=== PATIENT | male | born 1955 | race Caucasian/White ===

== ENCOUNTER 2017-01-19 22:21 | Inpatient (IN) | payer BC, OTHER ==
[2017-01-19] MEDS ORDERED: SODIUM CHLORIDE 0.9% 500 ML IV STA (22:47)
[2017-01-19] MEDS ORDERED: RX INFO: IV CONTRAST WAS GIVEN 1 EACH MISC MISCELLANE PRN (22:47)
[2017-01-19] MEDS ORDERED: SODIUM CHLORIDE 0.9% 1,000 ML IV STA (22:47)
[2017-01-19 22:55] LABS: Glucose,Whole Blood 226 mg/dL (75-99)
[2017-01-19] MEDS ORDERED: diphenhydrAMINE 50 MG/ML 1 ML VIAL IVP STA (23:05)
[2017-01-19] MEDS ORDERED: FAMOTIDINE 20 MG/2 ML VIAL IV STA (23:05)
[2017-01-19] MEDS ORDERED: methylPREDNISolone SOD SUCCI 125 MG/2 ML VIAL IV STA (23:05)
[2017-01-19] MEDS ORDERED: tPA (Alteplase) PER PHARMACY 1 EACH MISC MISCELLANE PRN (23:08)
[2017-01-19 23:12] LABS: Basophils % (A) 1 %; CHCM 32.5; Eosinophils # (A) 0.2 k/uL (0-0.7); Eosinophils % (A) 3 %; HCT 51.6 % (39.0-53.0); HDW 2.67; HGB 17.1 gm/dL (13.0-17.5); Luc % (Auto) 3; Lymphocytes # (A) 0.9 k/uL (1.0-4.8); Lymphocytes % (A) 13 %; MCH 27.7 pg (25.0-35.0); MCHC 33.1 g/dL (31.0-37.0); MCV 83.5 fL (80.0-100.0); Mean Platelet Volume 9.4; Monocytes # (A) 0.4 k/uL (0-1.0); Monocytes % (A) 5 %; Neutrophils # (A) 5.6 k/uL (1.3-7.7); Neutrophils % (A) 76 %; RBC 6.18 m/uL (4.30-5.90); RDW 14.6 % (11.5-15.5); WBC 7.4 k/uL (3.8-10.6); WBC (Perox) 7.74
[2017-01-19] MEDS ORDERED: ALTEPLASE 81 MG in EMPTY BAG 1 BAG IV STA (23:18)
[2017-01-19] MEDS ORDERED: ALTEPLASE BOLUS 9 MG in EMPTY BAG 1 BAG IV STA (23:22)
[2017-01-19 23:24] LABS: Partial Thromboplastin Time 25.5 sec (22.0-30.0); Prothrombin Time 10.2 sec (9.0-12.0)
[2017-01-19 23:25] LABS: ALT 30 U/L (21-72); AST 19 U/L (17-59); Alkaline Phosphatase 100 U/L (38-126); Anion Gap 12 mmol/L; Blood Urea Nitrogen 24 mg/dL (9-20); Calcium 9.3 mg/dL (8.4-10.2); Carbon Dioxide 23 mmol/L (22-30); Chloride 106 mmol/L (98-107); Glucose 205 mg/dL (74-99); Non-African American GFR(MDRD) >60 (>60 ml/min/1.73 sqM); Potassium 4.3 mmol/L (3.5-5.1); Sodium 141 mmol/L (137-145); Total Bilirubin 0.6 mg/dL (0.2-1.3)
[2017-01-19 23:46] LABS: Creatine Kinase 56 U/L (55-170)
[2017-01-19 23:57] LABS: Creatine Kinase MB 1.7 ng/mL (0.0-2.4); Troponin I <0.012 ng/mL (0.000-0.034)
[2017-01-20] MEDS ORDERED: ASPIRIN 325 MG TAB PO STA (00:05)
--- NOTE | 2017-01-20 00:05 | ED ---
General Adult HPI - General Chief complaint: Neuro Symptoms/Deficit Stated complaint: Weakness Time Seen by Provider: 01/19/17 22:47 Source: patient, RN notes reviewed, old records reviewed Mode of arrival: wheelchair Limitations: no limitations - History of Present Illness Initial comments: This is a 61-year-old male to the ER for evaluation today. This patient presents for evaluation of stroke. Patient suffering extreme stroke symptoms including left-sided arm and leg paralysis. Family noted stroke symptoms as they came home tonight. The states symptoms started around 9 PM. Patient's symptoms are persistent now. Patient does have history of CVA or TIA with no lasting deficits. Denies drugs or alcohol. History of high blood pressure and high cholesterol with history of UT and stent. Patient also is on Xarelto as a blood thinner. - Related Data Home Medications Medication Instructions Recorded Confirmed Insulin Glargine,Hum.rec.anlog 22 unit SQ QAM 08/15/16 01/19/17 [Lantus Solostar] Lisinopril [Prinivil] 20 mg PO DAILY 08/15/16 01/19/17 Nebivolol HCl [Bystolic] 20 mg PO DAILY 08/15/16 01/19/17 amLODIPine [Norvasc] 10 mg PO DAILY 08/15/16 01/19/17 Previous Rx's Medication Instructions Recorded Rivaroxaban [Xarelto] 20 mg PO DAILY #30 tab 08/20/16 Allergies Allergy/AdvReac Type Severity Reaction Status Date / Time Iodinated Contrast Media - Allergy Unknown Verified 01/19/17 22:48 Oral and [Iodinated Contrast Media - IV Dye] codeine AdvReac Nausea & Verified 01/19/17 22:48 Vomiting Review of Systems ROS Statement: Those systems with pertinent positive or pertinent negative responses have been documented in the HPI. ROS Other: All systems not noted in ROS Statement are negative. Past Medical History Past Medical History: CVA/TIA, Diabetes Mellitus, Hypertension, Myocardial Infarction ([place]) History of Any Multi-Drug Resistant Organisms: None Reported Past Surgical History: Heart Catheterization With Stent, Tonsillectomy Additional Past Surgical History / Comment(s): eye sx Date of Last Stent Placement:: 2011 Past Psychological History: Depression Smoking Status: Current every day smoker Past Alcohol Use History: Rare Past Drug Use History: None Reported General Exam - General Exam Comments Initial Comments: NIH of 6 regarding left-sided upper and lower extremity strength to gravity Limitations: no limitations General appearance: alert, in no apparent distress Head exam: Present: atraumatic, normocephalic, normal inspection Eye exam: Present: normal appearance, PERRL, EOMI. Absent: scleral icterus, conjunctival injection, periorbital swelling ENT exam: Present: normal exam, mucous membranes moist Neck exam: Present: normal inspection. Absent: tenderness, meningismus, lymphadenopathy Respiratory exam: Present: normal lung sounds bilaterally. Absent: respiratory distress, wheezes, rales, rhonchi, stridor Cardiovascular Exam: Present: regular rate, normal rhythm, normal heart sounds. Absent: systolic murmur, diastolic murmur, rubs, gallop, clicks GI/Abdominal exam: Present: soft, normal bowel sounds. Absent: distended, tenderness, guarding, rebound, rigid Extremities exam: Present: normal inspection, full ROM, normal capillary refill. Absent: tenderness, pedal edema, joint swelling, calf tenderness Back exam: Present: normal inspection Neurological exam: Present: alert, oriented X3, CN II-XII intact Psychiatric exam: Present: normal affect, normal mood Skin exam: Present: warm, dry, intact, normal color. Absent: rash Course Vital Signs 01/19/17 22:33 Temperature 98.0 F Pulse Rate 80 Respiratory 18 Rate Blood Pressure 157/74 O2 Sat by Pulse 96 Oximetry - Reevaluation(s) Reevaluation #1: 01/20/17 00:03 Code stroke paged on patient presentation to emergency room 01/20/17 00:03 Spoke with neuro public relations counselor, made aware of clinical situation with close follow-up with CT CTA Reevaluation #2: 01/20/17 00:03 Discussion with family as well as patient regarding patient not following within recommendations for TPA secondary to use of Xarelto Reevaluation #3: 01/20/17 00:04 Also, recently patient's EKG which did show mild ST elevation did speak with cardiology who states no intervention or treatment at this time continue with stroke evaluation Medical Decision Making - Medical Decision Making 61 mallei positive CVA, positive CVA resulting in left-sided hemiparalysis, patient will be admitted for further neurological evaluation treatment, patient does have prior neurological admission for TIA and testing. Patient showing a call proven here in emergency room, patient was made contraindication per neuro intervention regarding use of Xarelto for tpa - Lab Data Result diagrams: 01/19/17 23:00 01/19/17 23:00 Lab Results 01/19/17 01/19/17 01/19/17 Range/Units 22:51 23:00 23:00 WBC 7.4 (3.8-10.6) k/uL RBC 6.18 H (4.30-5.90) m/uL Hgb 17.1 (13.0-17.5) gm/dL Hct 51.6 (39.0-53.0) % MCV 83.5 (80.0-100.0) fL MCH 27.7 (25.0-35.0) pg MCHC 33.1 (31.0-37.0) g/dL RDW 14.6 (11.5-15.5) % Plt Count 170 (150-450) k/uL Neutrophils % 76 % Lymphocytes % 13 % Monocytes % 5 % Eosinophils % 3 % Basophils % 1 % Neutrophils # 5.6 (1.3-7.7) k/uL Lymphocytes # 0.9 L (1.0-4.8) k/uL Monocytes # 0.4 (0-1.0) k/uL Eosinophils # 0.2 (0-0.7) k/uL Basophils # 0.0 (0-0.2) k/uL PT (9.0-12.0) sec INR (<1.1) APTT (22.0-30.0) sec Sodium (137-145) mmol/L Potassium (3.5-5.1) mmol/L Chloride (98-107) mmol/L Carbon Dioxide (22-30) mmol/L Anion Gap mmol/L BUN (9-20) mg/dL Creatinine (0.66-1.25) mg/dL Est GFR (MDRD) Af Amer (>60 ml/min/1.73 sqM) Est GFR (MDRD) Non-Af (>60 ml/min/1.73 sqM) Glucose (74-99) mg/dL POC Glucose (mg/dL) 226 H (75-99) mg/dL POC Glu [place] Open[employer] ID Natty Altamirano Calcium (8.4-10.2) mg/dL Total Bilirubin (0.2-1.3) mg/dL AST (17-59) U/L ALT (21-72) U/L Alkaline Phosphatase (38-126) U/L Total Creatine Kinase 56 (55-170) U/L CK-MB (CK-2) 1.7 (0.0-2.4) ng/mL CK-MB (CK-2) Rel Index 3.0 Troponin I <0.012 (0.000-0.034) ng/mL Total Protein (6.3-8.2) g/dL Albumin (3.5-5.0) g/dL 01/19/17 01/19/17 Range/Units 23:00 23:00 WBC (3.8-10.6) k/uL RBC (4.30-5.90) m/uL Hgb (13.0-17.5) gm/dL Hct (39.0-53.0) % MCV (80.0-100.0) fL MCH (25.0-35.0) pg MCHC (31.0-37.0) g/dL RDW (11.5-15.5) % Plt Count (150-450) k/uL Neutrophils % % Lymphocytes % % Monocytes % % Eosinophils % % Basophils % % Neutrophils # (1.3-7.7) k/uL Lymphocytes # (1.0-4.8) k/uL Monocytes # (0-1.0) k/uL Eosinophils # (0-0.7) k/uL Basophils # (0-0.2) k/uL PT 10.2 (9.0-12.0) sec INR 1.0 (<1.1) APTT 25.5 (22.0-30.0) sec Sodium 141 (137-145) mmol/L Potassium 4.3 (3.5-5.1) mmol/L Chloride 106 (98-107) mmol/L Carbon Dioxide 23 (22-30) mmol/L Anion Gap 12 mmol/L BUN 24 H (9-20) mg/dL Creatinine 1.00 (0.66-1.25) mg/dL Est GFR (MDRD) Af Amer >60 (>60 ml/min/1.73 sqM) Est GFR (MDRD) Non-Af >60 (>60 ml/min/1.73 sqM) Glucose 205 H (74-99) mg/dL POC Glucose (mg/dL) (75-99) mg/dL POC Glu [place] Opener ID Calcium 9.3 (8.4-10.2) mg/dL Total Bilirubin 0.6 (0.2-1.3) mg/dL AST 19 (17-59) U/L ALT 30 (21-72) U/L Alkaline Phosphatase 100 (38-126) U/L Total Creatine Kinase (55-170) U/L CK-MB (CK-2) (0.0-2.4) ng/mL CK-MB (CK-2) Rel Index Troponin I (0.000-0.034) ng/mL Total Protein 7.0 (6.3-8.2) g/dL Albumin 4.2 (3.5-5.0) g/dL - Radiology Data Radiology results: report reviewed (CT CTA shows watershed area, no acute embolus), image reviewed Critical Care Time Critical Care Time: Yes Total Critical Care Time: 31 Disposition Clinical Impression: Cerebrovascular accident Disposition: ADMITTED IP TO THIS [facility] Condition: Serious Referrals: Shaun Omalley MD [Primary Care Provider] - 1-2 days
--- NOTE | 2017-01-20 00:07 | XR ---
EXAM: XR Chest, 1 View. CLINICAL HISTORY: Reason: altered mental status TECHNIQUE: Frontal view of the chest. COMPARISON: Chest x-ray 08/16/2016. FINDINGS: Lungs: Bilateral perihilar airspace disease concerning for pulmonary edema versus multifocal infection. Low lung volumes. Vascular congestion. Pleural space: Unremarkable. No pneumothorax. Heart: Prominent cardiac silhouette. Mediastinum: Unremarkable. Bones/joints: Chronic fracture deformity of the left clavicle. IMPRESSION: 1. Bilateral perihilar airspace disease concerning for pulmonary edema versus multifocal infection. 2. Vascular congestion. 3. Prominent cardiac silhouette. 4. Low lung volumes.
[2017-01-20] MEDS ORDERED: PIPERACILLIN-TAZOBACTAM 3.375 GM in DEXTROSE/WATER 1 50ML.BAG IVPB STA (00:12)
[2017-01-20] MEDS ORDERED: LEVOFLOXACIN 750MG-D5W PMX 750 MG in DEXTROSE/WATER 1 150ML.BAG IVPB STA (00:12)
[2017-01-20] MEDS ORDERED: IPRATROPIUM-ALBUTEROL 3 ML NEB INHALATION STA (00:12)
[2017-01-20] MEDS ORDERED: IPRATROPIUM-ALBUTEROL 3 ML NEB INHALATION PRN (00:12)
[2017-01-20] MEDS ORDERED: POLYMYXIN B-TRIMETHOPRIM (10,000-1) OPHTH DROPS 10 ML BTL LEFT EYE STA (00:13)
--- NOTE | 2017-01-20 00:26 | CT ---
EXAM: CT Head Without Intravenous Contrast. CLINICAL HISTORY: Reason: Neuro Deficits TECHNIQUE: Axial computed tomography images of the head/brain without intravenous contrast. CTDI is 60 mGy and DLP is 1181 mGy-cm. This CT exam was performed using one or more of the following dose reduction techniques: automated exposure control, adjustment of the mA and/or kV according to patient size, and/or use of iterative reconstruction technique. COMPARISON: CT head 08/16/2016. FINDINGS: Brain: 1.5 cm age-indeterminate hypoattenuation in the posterior limb of left internal capsule. If there is high clinical suspicion for an acute process, recommend MRI for further evaluation. Chronic infarctions of bilateral cerebellar hemispheres, bilateral occipital lobes, bilateral thalami, and bilateral basal ganglia. Moderate-severe white matter hypoattenuation, which is nonspecific and may be related to chronic microvascular ischemic change. Mild cerebral volume loss. No acute hemorrhage. Ventricles: No hydrocephalus. Bones/joints: Unremarkable. No acute fracture. Soft tissues: Unremarkable. Vasculature: Intracranial vascular calcifications. Sinuses: Unremarkable as visualized. No acute sinusitis. Mastoid air cells: Unremarkable as visualized. No mastoid effusion. Orbits: Bilateral cataract extraction. IMPRESSION: 1. 1.5 cm age-indeterminate hypoattenuation in the posterior limb of left internal capsule. If there is high clinical suspicion for an acute process, recommend MRI for further evaluation. 2. Chronic infarctions of bilateral cerebellar hemispheres, bilateral occipital lobes, bilateral thalami, and bilateral basal ganglia. 3. Moderate-severe white matter hypoattenuation, which is nonspecific and may be related to chronic microvascular ischemic change. 4. Mild cerebral volume loss.
[2017-01-20] MEDS: LEVOFLOXACIN 750MG-D5W PMX 750 MG in DEXTROSE/WATER 1 150ML.BAG IVPB SCH ×2 (00:43→23:43)
--- NOTE | 2017-01-20 00:52 | CT ---
EXAM: CT Angiography Head With Intravenous Contrast. CT Angiography Neck With Intravenous Contrast. CLINICAL HISTORY: Reason: Neuro Deficits TECHNIQUE: Axial computed tomographic angiography images of the head and neck with intravenous contrast using CT angiography protocol. CTDI is 11 mGy and DLP is 520 mGy-cm. This CT exam was performed using one or more of the following dose reduction techniques: automated exposure control, adjustment of the mA and/or kV according to patient size, and/or use of iterative reconstruction technique. MIP reconstructed images were created and reviewed. COMPARISON: MRA head 08/18/2016. FINDINGS: HEAD: Right anterior cerebral artery: Unremarkable. No occlusion or significant stenosis. No aneurysm. Right middle cerebral artery: Multifocal mild to moderate stenosis of the right MCA, similar to prior exam. No aneurysm. Right posterior cerebral artery: Critical stenosis/occlusion of the right [employer], similar to prior exam. Left anterior cerebral artery: New mild stenosis of the left A1 segment. No aneurysm. Left middle cerebral artery: Multifocal mild to moderate stenosis of the left MCA, similar to prior exam. No aneurysm. Left posterior cerebral artery: Critical stenosis/occlusion of the left [employer], similar to prior exam. Basilar artery: Critical stenosis/occlusion of the basilar artery, progressed from prior exam. Sinuses: Mild mucosal thickening of the paranasal sinuses without air fluid level. Orbits: Bilateral cataract extraction. NECK: Right common carotid artery: Unremarkable. No significant stenosis. No dissection or occlusion. Right internal carotid artery: Less than 50% stenosis of the right ICA origin and moderate stenosis of the intracranial portion. Right external carotid artery: Unremarkable. No occlusion. Right vertebral artery: Moderate-severe multifocal stenosis throughout the right V1-V3 segments; complete occlusion of the right V4 segment with history of a prior intervention/surgical material, similar to prior exam. Left common carotid artery: Unremarkable. No significant stenosis. No dissection or occlusion. Left internal carotid artery: Less than 50% stenosis of the left ICA origin and moderate stenosis of the intracranial portion. Left external carotid artery: Unremarkable. No occlusion. Left vertebral artery: Critical stenosis/occlusion of the left V4 segment, progressed from prior exam. Nasopharynx: Trace fluid in the posterior nasopharynx. Oropharynx: Soft tissue prominence of the oropharynx/left vallecula may be related to mucosal thickening; recommend direct visualization by ENT to exclude underlying mass lesion. Thyroid: 2 cm left thyroid nodule. Recommend correlation with thyroid function tests/thyroid ultrasound. Lung apices: Moderate emphysematous changes at bilateral lung apices. HEAD and NECK: Bones/joints: Moderate degenerative changes of the spine. No acute fracture. No dislocation. Soft tissues: Unremarkable as visualized. No mass. CAROTID STENOSIS REFERENCE USING NASCET CRITERIA: % ICA stenosis = (1 - narrowest ICA diameter/diameter of distal cervical ICA) x 100. Mild - <50% stenosis. Moderate - 50-69% stenosis. Severe - 70-94% stenosis. Near occlusion - 95-99% stenosis. Occluded - 100% stenosis. IMPRESSION: 1. Multifocal critical stenosis/occlusion throughout the posterior circulation, progressed in the left vertebral and basilar arteries and completely detailed above. 2. Mild to moderate multifocal stenosis throughout the anterior circulation, detailed above. 3. Soft tissue prominence of the oropharynx/left vallecula may be related to mucosal thickening; recommend direct visualization by ENT to exclude underlying mass lesion. 4. 2 cm left thyroid nodule. Recommend correlation with thyroid function tests/thyroid ultrasound. 5. Moderate emphysematous changes at bilateral lung apices. [employer] 01/20/17 00:56 Verify Receipt Verified receipt with clerk Jolly in the ER for Dr Lebron @ [phone]
[2017-01-20] MEDS: SODIUM CHLORIDE 0.9% 1,000 ML IV STA ×2 (01:14→06:32)
[2017-01-20] MEDS: POLYMYXIN B-TRIMETHOPRIM (10,000-1) OPHTH DROPS 10 ML BTL LEFT EYE SCH ×5 (01:14→23:11)
[2017-01-20 03:39] VITALS: BMI 38.2
[2017-01-20] MEDS: PIPERACILLIN-TAZOBACTAM 3.375 GM in DEXTROSE/WATER 1 50ML.BAG IVPB SCH ×3 (06:31→17:22)
[2017-01-20] MEDS: SODIUM CHLORIDE 0.9% 1,000 ML IV SCH ×2 (06:32→09:48)
[2017-01-20 14:11] LABS: Cholesterol 283 mg/dL (<200); HDL Cholesterol 41 mg/dL (40-60); Triglycerides 436 mg/dL (<150)
--- NOTE | 2017-01-20 15:51 | P.CNPUL ---
History of Present Illness Consult date: 01/20/17 Reason for consult: cough, abnormal CXR/CT Chief complaint: Left sided weakness History of present illness: This is a 61-year-old male who presented to the emergency department for strokelike symptoms. The patient was complaining of left-sided arm and leg weakness. The patient has a history of CVA and TIA but no deficits. The patient states she is an active smoker he smokes one to 2 packs per day for the last 40 years. He has never been diagnosed with COPD or asthma. He states he has inhalers at home but does not use them and does not know which ones they are. He does have a nebulizer at home which he never uses. He states he does get short of breath with exertion. He has never had a pulmonary function test. He does state he coughs every day and the phlegm is different colors all the time. On CTA of the brain the patient was found to have critical stenosis/ occlusion. The posterior circulation in the left vertebral and basilar arteries. The patient also had an echocardiogram in July 2016 which showed an ejection fraction of 40-45%. Review of Systems All systems: negative Past Medical History Past Medical History: CVA/TIA, Diabetes Mellitus, Hypertension, Myocardial Infarction ([place]) Last Myocardial Infarction Date:: unknown History of Any Multi-Drug Resistant Organisms: None Reported Past Surgical History: Heart Catheterization With Stent, Tonsillectomy Additional Past Surgical History / Comment(s): eye sx Date of Last Stent Placement:: 2011 Past Psychological History: Depression Smoking Status: Current every day smoker Past Alcohol Use History: Rare Past Drug Use History: None Reported Medications and Allergies Home Medications Medication Instructions Recorded Confirmed Type Insulin Glargine,Hum.rec.anlog 22 unit SQ QAM 08/15/16 01/19/17 History [Lantus Solostar] Lisinopril [Prinivil] 20 mg PO DAILY 08/15/16 01/19/17 History Nebivolol HCl [Bystolic] 20 mg PO DAILY 08/15/16 01/19/17 History amLODIPine [Norvasc] 10 mg PO DAILY 08/15/16 01/19/17 History Allergies Allergy/AdvReac Type Severity Reaction Status Date / Time Iodinated Contrast Media - Allergy Unknown Verified 01/19/17 22:48 Oral and [Iodinated Contrast Media - IV Dye] codeine AdvReac Nausea & Verified 01/19/17 22:48 Vomiting Physical Exam Osteopathic Statement: *. No significant issues noted on an osteopathic structural exam other than those noted in the History and Physical/Consult. Vitals: Vital Signs Temp Pulse Pulse Resp BP BP Pulse Ox 01/20/17 07:45 97.1 F L 60 16 168/91 94 L 01/20/17 02:20 97.2 F L 63 18 156/83 93 L 01/20/17 02:05 70 18 161/90 96 01/20/17 00:50 66 18 157/87 96 01/20/17 00:39 101 H Intake and Output 01/20/17 01/20/17 01/20/17 06:59 14:59 22:59 Intake Total 120 Balance 120 Intake: Oral 120 Other: Voiding Method Bedside Commode Bedside Commode # Voids 0 # Bowel Movements 0 Weight 131.542 kg Gen.: Patient is alert and oriented 3, no acute distress Cardiovascular: Regular rate and rhythm, S1/S2 Lungs: Scattered bilateral crackles Abdomen: Soft nontender nondistended positive bowel sounds Extremities: No edema Neuro: Left facial droop with left upper extremity and lower extremity weakness Results - Laboratory Findings CBC and BMP: 01/19/17 23:00 01/19/17 23:00 PT/INR, D-dimer PT 10.2 sec (9.0-12.0) 01/19/17 23:00 INR 1.0 (<1.1) 01/19/17 23:00 Abnormal lab findings: Abnormal Labs 01/20/17 05:33 Triglycerides 436 H Cholesterol 283 H - Diagnostic Findings Chest x-ray: report reviewed, image reviewed Assessment and Plan Plan: Pulmonary vascular congestion on CXR Suspect underlying COPD Posterior circulation CVA Hx CHF, systolic, EF 40-45% Hx CVA/TIA Paroxysmal Afib Hx LV thrombus Diabetes mellitus type 2 Hypertension Dyslipidemia Obesity Active tobacco abuse Check AIC, TSH, BNP Lasix 40mg BID for now DC IVF Will repeat chest x-ray in the next 24-48 hours Monitor for fevers/WBC Levaquin, Zosyn O2 to maintain saturation greater than or equal to 88% Duo nebs and Pulmicort Nicotine transdermal Neurology and cardiology recommendations Blood pressure control Incentive spirometry and pulmonary hygiene Smoking cessation is highly recommended Prednisone taper Outpatient PFT and pulmonary follow-up Thank you for this consultation we'll continue to follow along
[2017-01-20] MEDS: ATORVASTATIN 40 MG TAB PO SCH (16:46)
[2017-01-20] MEDS: NICOTINE 14MG/24HR PATCH TRANSDERM SCH (16:47)
[2017-01-20] MEDS: LISINOPRIL 20 MG TAB PO SCH (16:47)
[2017-01-20 17:16] LABS: Glucose,Whole Blood 113 mg/dL (75-99)
--- NOTE | 2017-01-20 17:20 | US ---
EXAMINATION TYPE: US carotid duplex BILAT DATE OF EXAM: 01/20/2017 4:27 PM COMPARISON: 08/16/2016 CLINICAL HISTORY: cva. Stroke per patient. Left side paralysis. Suboptimal exam due to patient unable to stay still and falling asleep during exam. EXAM MEASUREMENTS: RIGHT: Peak Systolic Velocity (PSV) cm/sec ----- Right CCA: 57.5 ----- Right ICA: 165.4 ----- Right ECA: 118.5 ICA/CCA ratio: 2.9 RIGHT: End Diastole cm/sec ----- Right CCA: 10.4 ----- Right ICA: 29.4 ----- Right ECA: 4.7 LEFT: Peak Systolic Velocity (PSV) cm/sec ----- Left CCA: 91.4 ----- Left ICA: 73.2 ----- Left ECA: 91.9 ICA/CCA ratio: 0.8 LEFT: End Diastole cm/sec ----- Left CCA: 15.0 ----- Left ICA: 20.4 ----- Left ECA: 8.3 VERTEBRALS (direction of flow): Right Vertebral: Antegrade Left Vertebral: Antegrade Right side stenosis seen. Elevated velocity in right proximal ICA. Plaque seen in bilateral bulbs. Bilateral wall thickening. Incidental finding- left thyroid nodule = 2.5 x 2.0 x 2.2 cm IMPRESSION: There is antegrade flow in the vertebral arteries. The images and measurements suggest 5 0-70% stenosis in the right internal carotid artery and 30% stenosis in the left internal carotid art coty. Right internal carotid artery velocity is increased compared to last exam. There is a 2.5 x 2 cm predominantly solid nodule in the lower pole left thyroid lobe of uncertain sig nificance. Criteria for Assigning % of Stenosis / Diameter reduction (Estimation based on the indirect measurements of the internal carotid artery velocities (ICA PSV). 1. Normal (no stenosis)=ICA PSV < 125 cm/s: ratio < 2.0: ICA EDV<40 cm/s. 2. Less than 50% stenosis=ICA PSV < 125 cm/s: ratio < 2.0: ICA EDV<40 cm/s. 3. 50 to 69% stenosis=ICA PSV of 125 to 230 cm/s: ration 2.0 ? 4.0: ICA EDV 40-100 cm/s. 4. Greater than 70% stenosis to near occlusion= ICA PSV > 230 cm/s: ratio > 4.0: ICA EDV > 100 cm/s. 5. Near occlusion= ICA PSV velocities may be low or undetectable: variable ratio and ICA EDV. 6. Total occlusion=unable to detect flow.
[2017-01-20] MEDS: INSULIN GLARGINE 100 UNIT/ML 10 ML VIAL SQ SCH (17:22)
[2017-01-20] MEDS: BUDESONIDE 0.5 MG/2 ML NEBU INHALATION SCH (20:20)
[2017-01-20] MEDS: FUROSEMIDE 10 MG/ML 4 ML VIAL IV SCH (20:20)
[2017-01-20] MEDS: FAMOTIDINE 20 MG TAB PO SCH (20:20)
[2017-01-20] MEDS: IPRATROPIUM-ALBUTEROL 3 ML NEB INHALATION SCH (20:20)
--- NOTE | 2017-01-20 21:04 | P.CNNES ---
History of Present Illness Consult date: 01/20/17 Reason for Consult: Patient admitted with acute left sided weakness and probable stroke. History of Present Illness: This patient is a 61-year-old right-handed white male who was in his usual state of health until late yesterday evening. Patient apparently developed sudden onset of left-sided arm and leg weakness. His symptoms started at about 9 PM yesterday evening. His symptoms persisted and the family was very concerned and he was brought in to the emergency room at [facility] for further evaluation. He was seen in the emergency room by Dr. eLbron. Patient was sent for immediate computed tomography scan of the brain which revealed a hypoattenuation in the posterior limb of the internal capsule on the left. Bilateral chronic infarctions were seen in the cerebellar hemispheres as well as bilateral occipital lobes and bilateral thalamus and basal ganglia. Moderate to severe white matter hypoattenuation was noted. Patient was brought back to the emergency room. Patient was reassessed by Dr. Lebron his NIH stroke scale was noted to be 6.0. The neuro interventional group was contacted by the ER physician. And CT and CTA angiogram studies were reviewed by the neuro interventionalist. The patient was taking Xarelto for possible paroxysmal atrial fibrillation. Due to the use of the anticoagulant the patient was not deemed a candidate for TPA by the neuro interventionalist. Patient was recommended admission to the hospital for further stroke evaluation and treatment. Patient apparently had a recent evaluation in the hospital for TIA symptoms. He was found to have symptoms of possible paroxysmal atrial fibrillation. He was recommended to continue with Xarelto. Patient is not a very good historian but states that he has been taking his Xarelto as instructed. CTA angiogram revealed multifocal stenosis of the posterior circulation. Left vertebral and basilar arteries showed 6 moderate stenosis. Mention was also made of a 2 cm left thyroid nodule. Patient was subsequently admitted to the hospital for a complete stroke evaluation. He underwent a carotid Doppler ultrasound which revealed 50-70% stenosis of the right internal carotid artery. Left internal carotid artery measured 30% stenosis. during his last hospitalization in July 2016 echocardiogram revealed his ejection fraction to be 4045 percent. as noted he was prescribed Xarelto for further treatment. The patient states he is unable to move his left arm due to the stroke. He is able to move his left foot. Prior to his admission he was able to use the left side. He denies any major speech impairment but does have some left-sided facial drooping as well. The patient's stroke risk factors include previous stroke and TIA, hypertension, diabetes mellitus, and hyper lipidemia. His serum cholesterol on admission was noted to be 283. Patient was started on Lipitor 40 mg daily for treatment. Patient does mention he has short-term memory loss and difficulty with day-to-day functioning at home. He is now been admitted and neurology has been consulted for further evaluation and recommendations. Review of Systems Constitutional: Denies chills, Denies fever Eyes: denies blurred vision, denies pain Ears, nose, mouth and throat: Denies headache, Denies sore throat Cardiovascular: Denies chest pain, Denies shortness of breath Respiratory: Denies cough Gastrointestinal: Denies abdominal pain, Denies diarrhea, Denies nausea, Denies vomiting Musculoskeletal: Denies myalgias Integumentary: Denies pruritus, Denies rash Neurological: Reports change in mentation, Reports confusion, Reports paralysis , Denies numbness, Denies weakness Psychiatric: Denies anxiety, Denies depression Endocrine: Denies fatigue, Denies weight change Past Medical History Past Medical History: CVA/TIA, Diabetes Mellitus, Hypertension, Myocardial Infarction (CO) Last Myocardial Infarction Date:: unknown History of Any Multi-Drug Resistant Organisms: None Reported Past Surgical History: Heart Catheterization With Stent, Tonsillectomy Additional Past Surgical History / Comment(s): eye sx Date of Last Stent Placement:: 2011 Past Psychological History: Depression Smoking Status: Current every day smoker Past Alcohol Use History: Rare Past Drug Use History: None Reported Medications and Allergies Home Medications Medication Instructions Recorded Confirmed Type Insulin Glargine,Hum.rec.anlog 22 unit SQ QAM 08/15/16 01/19/17 History [Lantus Solostar] Lisinopril [Prinivil] 20 mg PO DAILY 08/15/16 01/19/17 History Nebivolol HCl [Bystolic] 20 mg PO DAILY 08/15/16 01/19/17 History amLODIPine [Norvasc] 10 mg PO DAILY 08/15/16 01/19/17 History Allergies Allergy/AdvReac Type Severity Reaction Status Date / Time Iodinated Contrast Media - Allergy Unknown Verified 01/19/17 22:48 Oral and [Iodinated Contrast Media - IV Dye] codeine AdvReac Nausea & Verified 01/19/17 22:48 Vomiting Physical Examination - Vital Signs Vital Signs: Vital Signs Temp Pulse Pulse Resp BP BP Pulse Ox 01/20/17 17:20 97.5 F L 64 18 186/84 95 01/20/17 11:20 61 18 192/95 92 L 01/20/17 07:45 97.1 F L 60 16 168/91 94 L 01/20/17 02:20 97.2 F L 63 18 156/83 93 L 01/20/17 02:05 70 18 161/90 96 01/20/17 00:50 66 18 157/87 96 01/20/17 00:39 101 H Intake and Output 01/20/17 01/20/17 01/20/17 06:59 14:59 22:59 Intake Total 120 1160 Output Total 450 Balance -330 1160 Intake: Intake, IV Titration 1100 Amount Sodium Chloride 0.9% 1, 1100 000 ml @ 100 mls/hr IV . Q10H [facility] Rx#:[id number] Oral 120 60 Output: Urine 450 Other: Voiding Method Bedside Commode Bedside Commode Bedside Commode # Voids 0 # Bowel Movements 0 Weight 131.542 kg - Constitutional General appearance: average body habitus, cooperative - EENT EENT: PERRL, mucous membranes moist - Respiratory Respiratory: lungs clear, normal breath sounds - Cardiovascular Cardiovascular: normal S1, normal S2 Extremities: no peripheral edema bilaterally - Gastrointestinal Gastrointestinal: normoactive bowel sounds - Integumentary Integumentary: normal - Neurologic Cranial nerve examination: PERRL, EOMI, VFF, V1/V2/V3 grossly intact, tongue midline, intact gag reflex, facial droop (There is a left upper motor neuron facial weakness pattern.), normal palatal elevation Speech examination: intact Sensorimotor examination: intact Motor examination - right side: 5/5: biceps, triceps, wrist flexion, wrist extension, construction mgr, hip flexors, knee extensors, dorsiflexion, toe extension (EHL) , plantarflexion Motor examination - left side: 1/5: biceps, triceps, wrist flexion, wrist extension, construction mgr, hip flexors, knee extensors, dorsiflexion, toe extension (EHL) , plantarflexion Detailed sensory examination: intact Reflex and gait examination: intact Reflexes: 1+: ankle, bicep, knee, tricep - Musculoskeletal Musculoskeletal: no pain - Psychiatric Psychiatric: mood/affect appropriate, cooperative Results - Laboratory Findings CBC and BMP: 01/19/17 23:00 01/19/17 23:00 Abnormal Lab Findings: Abnormal Labs 01/20/17 01/20/17 05:33 17:07 POC Glucose (mg/dL) 113 H Triglycerides 436 H Cholesterol 283 H Assessment and Plan (1) Acute right arterial ischemic stroke, MCA (middle cerebral artery) Status: Acute Code(s): I63.511 - CEREB INFRC D/T UNSP OCCLS OR STENOS OF RIGHT MID CEREB ART (2) Hyperlipidemia Status: Acute Code(s): E78.5 - HYPERLIPIDEMIA, UNSPECIFIED (3) Encephalopathy Status: Acute Code(s): G93.40 - ENCEPHALOPATHY, UNSPECIFIED (4) Paroxysmal atrial fibrillation Status: Acute Code(s): I48.0 - PAROXYSMAL ATRIAL FIBRILLATION Plan: This patient is a 61-year-old male who was brought into the emergency room at about midnight yesterday with symptoms of left-sided weakness. Patient states his symptoms began at 9 PM yesterday evening. He was evaluated in the emergency room by Dr. Lebron. His NIH stroke scale was 6.0. He was sent for CT of the brain and CT angiogram the results of which are noted above. The neural interventionalists was contacted and it was their decision not to give TPA as the patient is on Xarelto. They have reviewed the neuro imaging studies as well. Patient was admitted to the hospital for further evaluation. Neurology was consult did today for further assessment of recent stroke. His neurological examination at this time reveals him to have significant left- sided hemiparesis arm greater than leg. There is also left upper motor neuron facial weakness. This patient has suffered an acute right hemispheric stroke. We have recommended a complete stroke evaluation for the patient. We will obtain an MRI of the brain for further assessment of recent stroke findings. The patient is to continue on Xarelto for further anticoagulation. We would recommend a vascular surgery consultation to review his recent ultrasound report. We would also recommend cardiology consultation regarding his anticoagulation. This patient's overall prognosis at this time remains very guarded. He was started on Lipitor 40 mg daily for treatment of hyperlipidemia. His serum cholesterol is 283. Patient will need ongoing PT OT and speech therapy evaluation. He may be a candidate for inpatient rehab. His overall prognosis at this time remains very guarded. Time with Patient: Greater than 30
[2017-01-20 21:30] LABS: Glucose,Whole Blood 117 mg/dL (75-99)
[2017-01-21] MEDS: PIPERACILLIN-TAZOBACTAM 3.375 GM in DEXTROSE/WATER 1 50ML.BAG IVPB SCH ×3 (02:02→18:30)
[2017-01-21 06:25] LABS: Glucose,Whole Blood 128 mg/dL (75-99)
[2017-01-21] MEDS: POLYMYXIN B-TRIMETHOPRIM (10,000-1) OPHTH DROPS 10 ML BTL LEFT EYE SCH ×5 (06:48→23:39)
[2017-01-21 06:52] LABS: ALT 31 U/L (21-72); AST 37 U/L (17-59); Alkaline Phosphatase 93 U/L (38-126); Anion Gap 14 mmol/L; Blood Urea Nitrogen 17 mg/dL (9-20); Calcium 9.6 mg/dL (8.4-10.2); Carbon Dioxide 24 mmol/L (22-30); Chloride 102 mmol/L (98-107); Glucose 135 mg/dL (74-99); Non-African American GFR(MDRD) >60 (>60 ml/min/1.73 sqM); Potassium 4.2 mmol/L (3.5-5.1); Sodium 140 mmol/L (137-145); Total Bilirubin 0.8 mg/dL (0.2-1.3)
--- NOTE | 2017-01-21 07:34 | HP ---
DATE OF ADMISSION: 01/20/2017 CHIEF COMPLAINT: A 61-year-old white male presents with neuro symptoms and deficits of weakness and left-sided weakness admitted to the hospital with acute right middle cerebral stroke. He has had left-sided arm and leg paralysis. Symptoms started 9:00 p.m. last night. He is beyond TPA type time line when he came to the emergency room. He has a history of CVA or TIA in the past, which resolved. Denies drugs or alcohol. He had three Coney dogs he states before he came to the hospital. He has hypertension, hypercholesterolemia, history of myocardial infarction, stent. He is on Xarelto for blood thinner. Home medications: 1. Lantus 22 units subcu in the morning. 2. Prinivil 20 daily. 3. Bystolic 20 daily. 4. Amlodipine 10 daily. 5. Xarelto 20 mg daily. ALLERGIES: IODINE, CODEINE. Fourteen-point review of systems negative except for as mentioned in HPI. PAST MEDICAL HISTORY: CVA, TIA, myocardial infarction, left atrial thrombus, diabetes mellitus, hypertension. SURGERIES: Heart catheterization stent, tonsillectomy. He has history of depression, current every day smoker. PHYSICAL EXAM: He has a limited motion of his left arm and left leg maybe 5% strength and movement of his left leg 0% percent of his left arm. His speech is slurred and garbled. There is some mild right facial weakness. GENERAL APPEARANCE: Alert, in no acute distress. Ophthalmologic: Pupils equal, round and reactive to light and accommodation. Extraocular movements intact. NECK: Supple. No adenopathy. He has absent wheezes, rales, rhonchi, stridor. CARDIOVASCULAR: Regular rate and rhythm. No rubs, or gallops or clicks. GI: Normal bowel sounds. No guarding or rebound. EXTREMITIES: Normal on inspection. Full range of motion. No tenderness, pedal edema, joint swelling or calf tenderness. Back is normal inspection. NEUROLOGIC: Cranial nerves are intact. PSYCH: Fair mood and affect. Temperature 98. Blood pressure 150s/70's. O2 sat 96% on room air. Respiratory rate 18. EKG showed mild ST-T elevation. White count is 7.4, hemoglobin 17.1, sodium 141, potassium 4.3, BUN 24, creatinine 1.0, white count is 7.4, hemoglobin 17.1, glucose 226, first troponin is negative. Sodium, potassium normal. ASSESSMENT: 1. Acute right middle cerebral cerebrovascular accident. 2. Hypertension. 3. Diabetes mellitus. 4. Obesity. 5. Possible carotid stenosis. PLAN: Continue current neurologic and cardiac work-up. Carotid stenosis. Vascular consult. Please see further orders.
--- NOTE | 2017-01-21 07:47 | XR ---
EXAMINATION TYPE: XR chest 1V portable DATE OF EXAM: 01/21/2017 7:29 AM COMPARISON: 01/19/2017 HISTORY: Shortness of breath TECHNIQUE: Single frontal view of the chest is obtained. FINDINGS: Perihilar interstitium is improved. Heart is mildly improved. Biapical pleural thickening but no pneumothorax. Suggestion of possible chronic rib deformity on the right. No sizable pleural ef fusion. IMPRESSION: 1. Improving interstitial pattern. Correlate for resolving pneumonitis or venous congestion
[2017-01-21] MEDS ORDERED: NICOTINE 14MG/24HR PATCH TRANSDERM SCH (09:00)
[2017-01-21] MEDS ORDERED: INSULIN GLARGINE 100 UNIT/ML 10 ML VIAL SQ SCH (09:00)
[2017-01-21] MEDS ORDERED: LISINOPRIL 20 MG TAB PO SCH (09:00)
[2017-01-21] MEDS: BUDESONIDE 0.5 MG/2 ML NEBU INHALATION SCH ×2 (09:05→19:58)
[2017-01-21] MEDS: IPRATROPIUM-ALBUTEROL 3 ML NEB INHALATION SCH ×3 (09:06→19:57)
[2017-01-21] MEDS: NEBIVOLOL 5 MG TAB PO SCH (10:40)
[2017-01-21] MEDS: RIVAROXABAN 10 MG TAB PO SCH (10:40)
[2017-01-21] MEDS: ATORVASTATIN 40 MG TAB PO SCH (10:40)
[2017-01-21] MEDS: NICOTINE 14MG/24HR PATCH TRANSDERM SCH (10:41)
[2017-01-21] MEDS: FUROSEMIDE 10 MG/ML 4 ML VIAL IV SCH ×2 (10:41→20:39)
[2017-01-21] MEDS: amLODIPine 10 MG TAB PO SCH (10:41)
[2017-01-21] MEDS: ASPIRIN 325 MG TAB PO SCH (10:41)
[2017-01-21] MEDS: predniSONE 20 MG TAB PO SCH (10:42)
[2017-01-21] MEDS: LISINOPRIL 20 MG TAB PO SCH (10:42)
[2017-01-21] MEDS: FAMOTIDINE 20 MG TAB PO SCH ×2 (10:42→23:38)
[2017-01-21] MEDS: INSULIN GLARGINE 100 UNIT/ML 10 ML VIAL SQ SCH (10:42)
--- NOTE | 2017-01-21 10:59 | CONS ---
DATE OF CONSULTATION: CHIEF COMPLAINT: Left-sided hemiplegia. Jaskaran is a 61-year-old gentleman with history of prior TIA, multiple lacunar infarcts who was admitted to hospital back in July 2016 and underwent extensive evaluation. He was supposed to have a loop recorder done, which he never did. He was started on Xarelto at that time. Patient has a history of stent in the basilar artery by a neuro grocery shopper who was in [facility], but had since moved. After my evaluation back in July, I sent him to interventional neurologist who evaluated him and apparently told the patient that he did not have any significant obstructive disease involving that vessel and he did not require any further treatment for the same. The patient had been on Xarelto and states that he is taking Xarelto regularly. He came to the hospital with extensive hemiplegia involving the left side of his body. Neurology has evaluated him. He underwent carotid duplex, angiograms and CT brain. The carotid duplex study on him showed a 50% to 70% stenosis involving the right internal carotid artery and a 30% stenosis involving left internal carotid artery. The patient had a LD at last admission that did not reveal any intracardiac thrombus and there was no evidence of shunting across the septum and patient also had CT angiography that revealed mild to moderate stenosis involving right middle cerebral artery less than 50% stenosis involving right internal carotid artery. I do not believe putting a loop recorder is going to change this patient's management. Loop recorder even if it finds atrial fibrillation, we will put him on a blood thinner, which he is already on. Past medical history is significant for hypertension and insulin-requiring diabetes. Current medications include Norvasc 10 q. daily, Xarelto 20 q. daily, Bystolic 20 q. daily, lisinopril 20 daily and insulin. The patient is allergic to IV DYE. Family history is negative for premature coronary artery disease. SOCIAL HISTORY: Significant for smoking. There is no history of EtOH abuse or drug abuse. REVIEW OF SYSTEMS: HEENT: Unremarkable. CARDIAC: As described above. RESPIRATORY: Negative. GI: Negative. GENITOURINARY: Negative. ALLERGY/IMMUNOLOGY: Negative. SKIN: Negative. MUSCULOSKELETAL: Negative. ENDOCRINE: Negative. HEMATOLOGIC: Negative. DERMATOLOGY: Negative. CONSTITUTIONAL: Negative. ONCOLOGICAL: Negative. The rest of the system review is not relevant. GROCERY SPECIALIST: Significant for left-sided hemiplegia. On exam, he is comfortable at rest. Heart rate is 55 beats per minute, blood pressure is 180/88, respiratory rate 18. There is no jugular venous distention. Carotid upstroke is normal. There is no bruit. Chest exam reveals good air entry bilaterally. Heart exam reveals first and second heart sounds, an S4 is heard. Abdomen is soft. Exam of the extremities did not reveal any edema. Peripheral pulses are palpable. EKG shows normal sinus rhythm with poor R wave progression. Rhythm strip shows that he is in sinus rhythm. ASSESSMENT: 1. Acute cerebrovascular accident with left-sided hemiplegia in a patient with prior recurrent strokes. 2. History of basilar artery stenosis, status post stent. 3. Severe hypertension. PLAN: I will continue with the Xarelto as we still do not have a good reason why the patient has had CVA. We can always obtain a loop recorder, but I do not think it is going to change his management at this time. Please consider referring the patient to a tertiary care center to assess as to why he is having these recurrent episodes of CVA in spite of adequate anticoagulation and without any clear-cut explanation. Thank you for allowing us to participate in the care of this pleasant gentleman. I am going to adjust his antihypertensives at this time.
--- NOTE | 2017-01-21 11:30 | P.PN ---
Subjective Principal diagnosis: CVA Patient seen and examined. Patient is Currently working with physical therapy. He was sitting up at bedside. The patient states his breathing is okay. He has no needs or complaints at this time. Objective - Vital Signs Vital signs: Vital Signs Temp 97.6 F 01/21/17 04:00 Pulse 63 01/21/17 08:00 Resp 18 01/21/17 04:00 BP 178/97 01/21/17 08:00 Pulse Ox 97 01/21/17 08:00 Intake & Output 01/20/17 01/21/17 01/21/17 18:59 06:59 18:59 Intake Total 1280 200 Output Total 450 700 Balance 830 -500 Weight 121.2 kg Intake: IV 200 Levofloxacin 750Mg-D5w 150 Pmx 750 mg In Dextrose/ Water 1 150ml.bag @ 100 mls/hr IVPB Q24H [facility] Rx#: [id number] Piperacillin-Tazobactam 3 50 .375 gm In Dextrose/Water 1 50ml.bag @ 12.5 mls/hr IVPB Q8HR [facility] Rx#: [id number] Intake, IV Titration 1100 Amount Sodium Chloride 0.9% 1, 1100 000 ml @ 100 mls/hr IV . Q10H [facility] Rx#:[id number] Oral 180 Output: Urine 450 700 Other: Voiding Method Bedside Commode Bedside Commode # Voids 0 1 # Bowel Movements 0 - Exam Gen.: Patient is alert and oriented 3, no acute distress Cardiovascular: Regular rate and rhythm, S1/S2 Lungs: Scattered bilateral crackles Abdomen: Soft nontender nondistended positive bowel sounds Extremities: No edema Neuro: Left facial droop with left upper extremity and lower extremity weakness - Labs CBC & Chem 7: 01/19/17 23:00 01/21/17 05:50 Labs: Abnormal Lab Results - Last 24 Hours (Table) 01/20/17 01/20/17 01/20/17 Range/Units 05:33 17:07 21:16 Glucose (74-99) mg/dL POC Glucose (mg/dL) 113 H 117 H (75-99) mg/dL Triglycerides 436 H (<150) mg/dL Cholesterol 283 H (<200) mg/dL 01/21/17 01/21/17 Range/Units 05:50 06:23 Glucose 135 H (74-99) mg/dL POC Glucose (mg/dL) 128 H (75-99) mg/dL Triglycerides (<150) mg/dL Cholesterol (<200) mg/dL Assessment and Plan Plan: Pulmonary vascular congestion on CXR Suspect underlying COPD Posterior circulation CVA Hx CHF, systolic, EF 40-45% Hx CVA/TIA Paroxysmal Afib Diabetes mellitus type 2 Hypertension Dyslipidemia Obesity Active tobacco abuse Check AIC, TSH, BNP Lasix 40mg BID for now DC IVF Will repeat chest x-ray in the next 24-48 hours Monitor for fevers/WBC Levaquin, Zosyn O2 to maintain saturation greater than or equal to 88% Duo nebs and Pulmicort Nicotine transdermal Neurology and cardiology recommendations Blood pressure control Incentive spirometry and pulmonary hygiene Smoking cessation is highly recommended Prednisone taper Outpatient PFT and pulmonary follow-up PT and OT
[2017-01-21 11:49] LABS: Glucose,Whole Blood 131 mg/dL (75-99)
[2017-01-21] MEDS: hydrALAZINE HCL 25 MG TAB PO SCH ×3 (11:49→23:38)
--- NOTE | 2017-01-21 12:25 | P.PN ---
Subjective 61-year-old male presented from the emergency room to be evaluated for new onset of weakness involving the left upper arm. Patient has a prior history of having a CVA with no deficitsin on July 2016 . Patient was admitted last in July 2016 at that time he did undergo an extensive evaluation was treated for multiple Lacuna rinfarcts. Patient was started on Xarelto. Patient states he's been compliant with taking his medications as directed. States he has not missed any doses. Patient reports that he was in his usual state of health up until the event when he developed the sudden onset of the left upper arm and left lower leg paralysis. Patient started the symptoms occurred around 9:00 in the evening patient presented to the emergency room patient was felt to not be a candidate for TPA in regards to the patient being on Xarelto. Patient was admitted to the services of the attending with cardiology pulmonology and neurology eval requested. Patient did undergo carotid Doppler studies showed a 50-70% stenosis involving the right internal carotid artery and 30% in the left. Additionally last admission the patient did have a LD by cardiology it did not reveal any intracardiac thrombus and there was no evidence of shunting across the septum. Additionally last admission the patient had a computed tomography scan Of the carotids that did show mild to moderate stenosis involving the right middle cerebral artery and less than 50% involving the right internal carotid artery. Patient does give a history of having a stent placed in the basilar artery by a neuro- intervention physician several years ago. It's noted that the last admission in July 2016 patient was to have an event recorder placed in which the patient did not follow-up on. Cardiology's recommendations were reviewed recommend continue the Xarelto as there is no good reason why the patient has had a CVA. Cardiology indicates that the loop recorder would not change the management at this time. Cardiology is also indicating that the patient should be considered to be referred to a tertiary center to assess as why the patient is having these recurrent episodes of CVA in spite of adequate anticoagulation without any clear explanation. Pulmonology's recommendations reviewed. Patients being treated for pulmonary vascular congestion noted on x-ray suspect underlying COPD in a patient who has a significant history of nicotine dependency. There are encouraging incentive spirometer with pulmonary hygiene repeat the chest x-ray in the next 24-48 hours Patient is being followed by neurology Dr. Angela being treated for an acute right hemispheric stroke with left upper extremity paralysis Objective - Vital Signs Vital signs: Vital Signs Temp 97.6 F 01/21/17 04:00 Pulse 63 01/21/17 08:00 Resp 18 01/21/17 04:00 BP 178/97 01/21/17 08:00 Pulse Ox 97 01/21/17 08:00 Intake & Output 01/20/17 01/21/17 01/21/17 18:59 06:59 18:59 Intake Total 1280 200 Output Total 450 700 Balance 830 -500 Weight 121.2 kg Intake: IV 200 Levofloxacin 750Mg-D5w 150 Pmx 750 mg In Dextrose/ Water 1 150ml.bag @ 100 mls/hr IVPB Q24H [facility] Rx#: [id number] Piperacillin-Tazobactam 3 50 .375 gm In Dextrose/Water 1 50ml.bag @ 12.5 mls/hr IVPB Q8HR [facility] Rx#: [id number] Intake, IV Titration 1100 Amount Sodium Chloride 0.9% 1, 1100 000 ml @ 100 mls/hr IV . Q10H [facility] Rx#:[id number] Oral 180 Output: Urine 450 700 Other: Voiding Method Bedside Commode Bedside Commode # Voids 0 1 # Bowel Movements 0 - Exam GENERAL APPEARANCE: 61-year-old male patient is alert, oriented, in no acute distress.sitting up in bed VITAL SIGNS: HEENT: Head is normocephalic and atraumatic. Pupils are equal and reactive. The nares are patent. Oropharynx is clear without lesions. NECK: Supple without lymphadenopathy. Traches midline. HEART: S1, S2. Regular rate and rhythm.reviewedno murmur noted to monitor currently showing sinus rhythm sinus bradycardia no ectopy LUNGS: No crackles or wheezes are heard.desat on room air document 97% no cough noted ABDOMEN: Soft obese nontender, nondistended with good bowel sounds. No peritoneal signs. No palpable organomegaly or masses. EXTREMITIES: Normal skin color and turgor. No cyanosis, rash, ulceration, clubbing or edema. Radial pedal pulses are 2/4 bilaterally.left upper extremity paralysis not able to lift her squeeze on the left upper arm. Is able to lift the left lower extremity a few inches off the bed. There is no adequate sensation to the left upper arm left arm is warm to touch NEUROLOGICAL: No focal deficits. Strength and sensation are grossly intact. - Labs CBC & Chem 7: 01/19/17 23:00 01/21/17 05:50 Labs: Abnormal Lab Results - Last 24 Hours (Table) 01/20/17 01/20/17 01/20/17 Range/Units 05:33 17:07 21:16 Glucose (74-99) mg/dL POC Glucose (mg/dL) 113 H 117 H (75-99) mg/dL Triglycerides 436 H (<150) mg/dL Cholesterol 283 H (<200) mg/dL 01/21/17 01/21/17 01/21/17 Range/Units 05:50 06:23 11:47 Glucose 135 H (74-99) mg/dL POC Glucose (mg/dL) 128 H 131 H (75-99) mg/dL Triglycerides (<150) mg/dL Cholesterol (<200) mg/dL Assessment and Plan Plan: impression present on admission sudden onset left arm & left leg weakness due toAcute right arterial ischemic stroke, MCA (middle cerebral artery) acute encephalopathy paroxysmal atrial fibrillation Currently maintaining sinus rhythm on Xarelto hyperlipidemia active tobacco abuse greater than a 40 year history 1 pack a day suspect underlying COPD Chronic systolic congestive heart failure EF 40-45% no evidence of an decompensation Type 2 diabetes insulin requiring Morbid obesity BMI 35 A history of basilar artery stenosis status post stent greater than [address] angiogram head and neck showsmild to moderate multifocal stenosis carotid arteries Computed tomography scan carotid neck shows moderate emphysema changes at the bilateral lung apices hypertension. Plan Continue with recommendations cardiology service Resume home meds as appropriate PT OT eval Awaitvascular's recommendations for carotid arteries Continue his Xarelto as ordered Continue recommendations by neurology being followed by Dr. Radha Angela when appropriate will consult Dr. Robertson Discuss with the attending for the patient should be considered to be referred to a tertiary center to assess as to why he is having recurrent episodes of a CVA in spite of adequate anticoagulation without any clear-cut explanation continue to monitor The above dictated assessment and findings were discussed with dr javier . Impression and the plan of care have been dictated as directed. Caitlin Redmond nurse practitioner acting as a scribe for dr javier
[2017-01-21 12:33] LABS: Hemoglobin A1C 6.7 % (4.2-6.1)
--- NOTE | 2017-01-21 13:04 | P.CONS ---
History of Present Illness - Chief Complaint Gait disturbance - History of Present Illness I had the opportunity to see patient for inpatient rehab consultation with regard to gait disturbance, stroke with left hemiparesthesias. He was admitted to [facility] January 20 with acute onset left-sided weakness. Seen by Dr. Radha Martin for neurology and seen by pulmonary. Most recent chest x-ray demonstrates improvement in interstitial change or congestion. Carotid Doppler demonstrates stenosis right proximal ICA. Head CT demonstrates left internal capsule attenuation as well as chronic bilateral cerebral attenuations and nonspecific change and chronic volume loss. Anterior CT demonstrates multiple stenoses. PT, OT, STRATEGIC SOURCING SPECIALIST ordered. Previous functional history, as elicited from patient: 61-year-old right-handed white male who is and lives in a one half floor farmhouse with . Retired. does the laundry and driving. They were sharing the cooking. Patient describes independent with basic self-care including standing shower and gait without device. Family history of pulmonary cancer in father. Review of Systems Review of systems: ENT: Denies sneezes or discharge. Eyes: Denies discharge or photophobia. Cardiac: Denies chest pain or palpitation. Pulmonary: Denies cough or shortness of breath. Gastrointestinal: Denies nausea, emesis, constipation, diarrhea. Genitourinary: Denies discharge or frequency. Musculoskeletal: Denies muscle or bone aches. Neurologic: Sided weakness and numbness. Numbness and tingling in the fingertips on the right hand. Endocrine: Denies shakes or sweats. Oncology: Denies cancers. Dermatologic: Denies rash, itching, pruritus. ALLERGY/immunology: Denies sneezes, rashes. Past Medical History Past Medical History: CVA/TIA, Diabetes Mellitus, Hypertension, Myocardial Infarction (DC) Last Myocardial Infarction Date:: unknown History of Any Multi-Drug Resistant Organisms: None Reported Past Surgical History: Heart Catheterization With Stent, Tonsillectomy Additional Past Surgical History / Comment(s): eye sx Date of Last Stent Placement:: 2011 Past Psychological History: Depression Smoking Status: Current every day smoker Past Alcohol Use History: Rare Past Drug Use History: None Reported Medications and Allergies Home Medications Medication Instructions Recorded Confirmed Type Insulin Glargine,Hum.rec.anlog 22 unit SQ QAM 08/15/16 01/19/17 History [Lantus Solostar] Lisinopril [Prinivil] 20 mg PO DAILY 08/15/16 01/19/17 History Nebivolol HCl [Bystolic] 20 mg PO DAILY 08/15/16 01/19/17 History amLODIPine [Norvasc] 10 mg PO DAILY 08/15/16 01/19/17 History Allergies Allergy/AdvReac Type Severity Reaction Status Date / Time Iodinated Contrast Media - Allergy Unknown Verified 01/19/17 22:48 Oral and [Iodinated Contrast Media - IV Dye] codeine AdvReac Nausea & Verified 01/19/17 22:48 Vomiting Physical Exam Vitals: Vital Signs Temp Pulse Pulse Resp BP Pulse Ox 01/21/17 08:00 63 178/97 97 01/21/17 04:00 97.6 F 55 L 18 182/88 94 L 01/21/17 00:00 97.6 F 52 L 18 162/86 93 L 01/20/17 20:38 98 01/20/17 20:21 92 01/20/17 20:00 97.9 F 61 18 169/81 93 L 01/20/17 17:20 97.5 F L 64 18 186/84 95 Intake and Output 01/20/17 01/21/17 01/21/17 22:59 06:59 14:59 Intake Total 1160 200 Output Total 700 800 Balance 460 200 -800 Intake: IV 200 Levofloxacin 750Mg-D5w 150 Pmx 750 mg In Dextrose/ Water 1 150ml.bag @ 100 mls/hr IVPB Q24H [facility] Rx#: [id number] Piperacillin-Tazobactam 3 50 .375 gm In Dextrose/Water 1 50ml.bag @ 12.5 mls/hr IVPB Q8HR [facility] Rx#: [id number] Intake, IV Titration 1100 Amount Sodium Chloride 0.9% 1, 1100 000 ml @ 100 mls/hr IV . Q10H [facility] Rx#:[id number] Oral 60 Output: Urine 700 800 Other: Voiding Method Bedside Commode Bedside Commode # Voids 1 Weight 121.2 kg Results CBC & Chem 7: 01/19/17 23:00 01/21/17 05:50 Labs: Abnormal Lab Results - Last 24 Hours (Table) 01/20/17 01/20/17 01/20/17 Range/Units 05:33 17:07 21:16 Glucose (74-99) mg/dL POC Glucose (mg/dL) 113 H 117 H (75-99) mg/dL Triglycerides 436 H (<150) mg/dL Cholesterol 283 H (<200) mg/dL 01/21/17 01/21/17 01/21/17 Range/Units 05:50 06:23 11:47 Glucose 135 H (74-99) mg/dL POC Glucose (mg/dL) 128 H 131 H (75-99) mg/dL Triglycerides (<150) mg/dL Cholesterol (<200) mg/dL Chest x-ray: report reviewed (Follow-up demonstrates improvement in her social change or congestion.) CT Scan - head: report reviewed (Attenuation of the left internal capsule. Chronic bilateral cerebral attenuations, nonspecific white matter changes, loss of cerebral volume.) Assessment and Plan (1) Acute right arterial ischemic stroke, MCA (middle cerebral artery) Status: Acute Plan: Impression: 1. Gait disturbance. 2. Acute right MCA stroke with result in left hemiparesthesias. 3. Morbid obesity. 4. Diabetes. 5. Hypertension. 6. History of DC and stroke. Comments and plan: At this time PT, OT, STRATEGIC SOURCING SPECIALIST ordered and should be ongoing. We' ll review progress, Tuesday a.m. Patient has voiced his concern that not be asked to take care of him as he she is 61 and he is a fairly large individual.
--- NOTE | 2017-01-21 16:44 | MR ---
EXAMINATION TYPE: MR brain wo con DATE OF EXAM: 01/21/2017 3:58 PM COMPARISON: Prior MRI brain August 18, 2016. Prior CT brain from 2 days ago. HISTORY: Left arm/leg weakness on admission 2 days ago. Acute left-sided hemispheric stroke per order . TECHNIQUE: Multiplanar, multisequence imaging of the brain and brainstem is performed without IV cont rast. FINDINGS: Diffusion weighted images demonstrate area of increased signal on diffusion weighted images with dimi nished signal on ADC mapping involving significant portion of the right upper chrissy seen best on image 96 series 305 ventral and mid aspect. There is increased T2 signal with subtle diminished T1 signal. Area of involvement is roughly 1.5 x 1.2 cm transversely. There is no worrisome extra-axial fluid collection. There is ventricular and sulcal prominence consis tent with diffuse cerebral atrophy. There are focal and confluent areas of T2 hyperintensity seen thr oughout the deep and periventricular white matter consistent with product of chronic small vessel isc hemic change. There is old infarcts involving the medial left left occipital lobe redemonstrated. Tai e old lacunar infarcts involving the centrum semiovale bilaterally are redemonstrated. Old bilateral cerebellar infarcts are redemonstrated seen best on axial image 8. Midline structures demonstrate normal morphology. The craniocervical junction appears within normal limits. There is redemonstration of abnormal signal in the basilar artery consistent with stenosis o r clot seen on recent CTA exam seen best on axial image 11. Some improvement or recanalization is fel t present in the posterior circulation as improved vascular flow voids are identified. The visualized sinuses are clear and the globes are intact. IMPRESSION: 1. Evolving acute/subacute infarct involving the right superior chrissy as detailed above. 2. Background of mild to moderate diffuse cerebral atrophy with more severe chronic small vessel isch emic change as well as multiple old lacunar infarcts and left occipital infarct all redemonstrated. A Yellow message has been communicated to Lashay Angela MD via the [facility] [employer] sult system on 01/21/2017 4:41 PM, Message ID [id number].
[2017-01-21 17:02] LABS: Glucose,Whole Blood 214 mg/dL (75-99)
--- NOTE | 2017-01-21 19:59 | P.PN ---
Subjective This patient is a 61-year-old right-handed white male who was seen in neurology consultation yesterday for acute left arm weakness. Patient developed sudden left arm and leg weakness and was brought into the emergency room at [facility] for further evaluation. He was seen in the emergency room and was evaluated by the ER physician Dr. Lebron. Code stroke was initiated in the interventional neurologist reviewed his findings. He was not a candidate for TPA as he was on Xarelto. He was admitted to Hospital. He continued to show significant weakness of the left upper extremity on examination yesterday. He was sent for MRI of the brain today which was reviewed. MRI reveals evidence of an acute/subacute infarct involving the right superior chrissy. This would explain his current findings of severe left arm weakness. His CTA angiogram did reveal evidence of severe posterior circulation vascular occlusive disease. Patient is to continue on Xarelto at this time for long-term anticoagulation. Patient had undergone LD procedure last year in July 2016 which was entirely normal. Cardiology has seen the patient today and feel there is no cardiac source for his stroke. Given the results of his CTA angiogram this is most likely vasculopathy secondary to severe artery disease. We will continue close neurological follow-up for this patient. He needs to be maintained on long-term anticoagulation. We have recommended inpatient rehab placement for this patient and he has been evaluated by Dr. Robertson today. His overall prognosis at this time remains very guarded. Objective - Vital Signs Vital signs: Vital Signs Temp 97.6 F 01/21/17 04:00 Pulse 86 01/21/17 16:00 Resp 18 01/21/17 04:00 BP 139/86 01/21/17 16:00 Pulse Ox 90 L 01/21/17 16:00 Intake & Output 01/21/17 01/21/17 01/22/17 06:59 18:59 06:59 Intake Total 200 480 Output Total 700 800 Balance -500 -320 Weight 121.2 kg Intake: IV 200 Levofloxacin 750Mg-D5w 150 Pmx 750 mg In Dextrose/ Water 1 150ml.bag @ 100 mls/hr IVPB Q24H [facility] Rx#: [id number] Piperacillin-Tazobactam 3 50 .375 gm In Dextrose/Water 1 50ml.bag @ 12.5 mls/hr IVPB Q8HR [facility] Rx#: [id number] Oral 480 Output: Urine 700 800 Other: Voiding Method Bedside Commode # Voids 1 - Exam Physical examination: PHYSICAL EXAMINATION: Patient is resting comfortably in bed. VITAL SIGNS: Blood pressure is [161/95]. Heart rate is [56]. Respiration is [18] . Temperature is [97.7]. HEENT: Head is atraumatic, neck is supple, there were no carotid bruits. CHEST: Lungs are clear to auscultation and percussion. CARDIAC: S1, S2 normal rate and rhythm. There is no murmur. ABDOMEN: Soft and nontender. Bowel sounds are present. EXTREMITIES: There is no pedal edema. Peripheral pulses are present. Neurological examination: Patient's neurological examination is unchanged from yesterday. He continues to demonstrate left-sided hemiparesthesias arm greater than leg. - Labs CBC & Chem 7: 01/19/17 23:00 01/21/17 05:50 Labs: Abnormal Lab Results - Last 24 Hours (Table) 01/20/17 01/21/17 01/21/17 Range/Units 21:16 05:50 05:50 Glucose 135 H (74-99) mg/dL POC Glucose (mg/dL) 117 H (75-99) mg/dL Hemoglobin A1c 6.7 H (4.2-6.1) % 01/21/17 01/21/17 01/21/17 Range/Units 06:23 11:47 16:45 Glucose (74-99) mg/dL POC Glucose (mg/dL) 128 H 131 H 214 H (75-99) mg/dL Hemoglobin A1c (4.2-6.1) % Assessment and Plan (1) Acute right arterial ischemic stroke, MCA (middle cerebral artery) Status: Acute Code(s): I63.511 - CEREB INFRC D/T UNSP OCCLS OR STENOS OF RIGHT MID CEREB ART (2) Hyperlipidemia Status: Acute Code(s): E78.5 - HYPERLIPIDEMIA, UNSPECIFIED (3) Encephalopathy Status: Acute Code(s): G93.40 - ENCEPHALOPATHY, UNSPECIFIED (4) Paroxysmal atrial fibrillation Status: Acute Code(s): I48.0 - PAROXYSMAL ATRIAL FIBRILLATION Plan: This patient is a 61-year-old male who was admitted to Hospital initially with acute left arm weakness. He was seen in the emergency room by Dr. Lebron, who performed initial stroke evaluation. The interventional neurologist reviewed his case and deemed he was not a TPA candidate as he was taking Xarelto. He was admitted to hospital for further stroke evaluation. Patient was sent for MRI of the brain today which is reviewed. Results are as noted above. MRI reveals evidence of an acute/subacute stroke involving the right superior chrissy. This would explain his acute left arm and leg weakness. Patient is to be maintained on Xarelto. CTA angiogram reveals severe posterior circulation arterial disease. He is to be maintained on Xarelto usp. Patient has been evaluated by Dr. Boyle for inpatient rehab placement. We will await his further reevaluation on Tuesday. This patient's overall prognosis at this time remains very guarded.
[2017-01-21] MEDS: LEVOFLOXACIN 750 MG TAB PO SCH (20:39)
[2017-01-21] MEDS ORDERED: ZOLPIDEM 5 MG TAB PO PRN (21:18)
[2017-01-21 22:00] LABS: Glucose,Whole Blood 241 mg/dL (75-99)
--- NOTE | 2017-01-21 22:12 | EEG ---
DATE OF SERVICE: 01/21/2017 INDICATIONS FOR EXAMINATION: This patient is a 61 -year-old male admitted to the hospital with acute left sided weakness and acute stroke findings. AGE: 61Y EEG FINDINGS: A routine 21 channel digital EEG recording was accomplished utilizing the 10-20 international system with bipolar and referential montages. The background activity in the most alert resting state consists of a low to medium amplitude fairly well developed and well sustained 6-7 Hz activity over the posterior head regions. This posterior rhythm attenuates to eye opening. There was a small amount of low amplitude 18-20 Hz beta activity seen maximally over the anterior head regions. Muscle and movement artifact was observed on a few occasions during the tracing. Hyperventilation was not performed. Photic stimulation at flash frequencies of 2-30 Hz produced a minimal occipital driving response. No epileptiform discharges were seen. IMPRESSION: This EEG is mildly abnormal in a diffuse fashion due to slowing of the EEG background. The EEG failed to reveal any focal, lateralized or epileptiform abnormalities. Clinical correlation is recommended.
--- NOTE | 2017-01-21 23:16 | P.GSCN ---
History of Present Illness Consult date: 01/21/17 Reason for Consult: carotid stenosis History of present illness: impression; 1. 50-69% asymptomatic right carotid stenosis by duplex criteria; findings are secondary to vessel angulation and no significant plaque formation; CTA demonstrates no significant lesion 2. acute/subacute CVA involving right superior chrissy with resulting left arm paralysis/left leg paresis 3. nicotine dependence 4. diabetes mellitus 5. COPD 6. HLD plan; 1. continue current medical regimen; no vascular surgery intervention at this time 2. patient is not motivated to stop the use of nicotine at this time HPI: 61 y/o man, presented with left arm and leg paralysis on 01/20/2017. He has a history of CVA in the past involving the posterior circulation. Underwent right vertebral stent placement 2015. 80 pack year history of nicotine dependence; currently smokes 1.5-2ppd. DMx 10 years. HTN x 10 years. Denies DE or CHF PMHx, PSHx; reviewed Habits; 80 pack year history of nicotine; smokes 1.5-2ppd Fhx; non-contributory PE; WD obese male in NAD BP = 137/72, 80 HEENT: no bruits, no JVD Lungs; diminished bilaterally Heart; RRR, normal S1 and S2 ABD; soft, non-tender, no pulsatile organomegaly or bruits EXTR femoral pulses are palpable bilaterally; right popliteal pulse is palpable ; right pedal pulses are not; left popliteal and pedal pulses are not palpable; both feet viable with capillary refill of 2-3 seconds neuro; cranial nerves 2-12 intact; flaccid paralysis of the left arm; 2/5 motor strength of the left leg; right arm and leg with 5/5 motor strength CTA of carotids reviewed by me. Demonstrates no significant carotid stenosis of both carotid arteries bilaterally. There is significant stenosis/occlusion of the right vertebral artery especially noted at V4; there is occlusion of the left carotid artery at V4; the basilar artery demonstrates critical stenosis/ occlusion Carotid duplex demonstrates 50-69% stenosis of the right internal carotid artery by velocity and ratio criteria. There is angulation of the carotid artery noted distally. The left carotid artery demonstrates <50% carotid stenosis. There is antegrade flow in both vertebrals. impression/plan as noted above Past Medical History Past Medical History: CVA/TIA, Diabetes Mellitus, Hypertension, Myocardial Infarction (DE) Last Myocardial Infarction Date:: unknown History of Any Multi-Drug Resistant Organisms: None Reported Past Surgical History: Heart Catheterization With Stent, Tonsillectomy Additional Past Surgical History / Comment(s): eye sx Date of Last Stent Placement:: 2011 Past Psychological History: Depression Smoking Status: Current every day smoker Past Alcohol Use History: Rare Past Drug Use History: None Reported Medications and Allergies Home Medications Medication Instructions Recorded Confirmed Type Insulin Glargine,Hum.rec.anlog 22 unit SQ QAM 08/15/16 01/19/17 History [Lantus Solostar] Lisinopril [Prinivil] 20 mg PO DAILY 08/15/16 01/19/17 History Nebivolol HCl [Bystolic] 20 mg PO DAILY 08/15/16 01/19/17 History amLODIPine [Norvasc] 10 mg PO DAILY 08/15/16 01/19/17 History Allergies Allergy/AdvReac Type Severity Reaction Status Date / Time Iodinated Contrast Media - Allergy Unknown Verified 01/19/17 22:48 Oral and [Iodinated Contrast Media - IV Dye] codeine AdvReac Nausea & Verified 01/19/17 22:48 Vomiting Surgical - Exam Vital Signs Temp Pulse Resp BP Pulse Ox 98.0 F 80 18 157/74 96 01/19/17 22:33 01/19/17 22:33 01/19/17 22:33 01/19/17 22:33 01/19/17 22:33 Results - Labs 01/19/17 23:00 01/21/17 05:50 Abnormal Lab Results - Last 24 Hours (Table) 01/21/17 01/21/17 01/21/17 Range/Units 05:50 05:50 06:23 Glucose 135 H (74-99) mg/dL POC Glucose (mg/dL) 128 H (75-99) mg/dL Hemoglobin A1c 6.7 H (4.2-6.1) % 01/21/17 01/21/17 01/21/17 Range/Units 11:47 16:45 21:38 Glucose (74-99) mg/dL POC Glucose (mg/dL) 131 H 214 H 241 H (75-99) mg/dL Hemoglobin A1c (4.2-6.1) % Diabetes panel 01/21/17 01/21/17 Range/Units 05:50 05:50 Sodium 140 (137-145) mmol/L Potassium 4.2 (3.5-5.1) mmol/L Chloride 102 (98-107) mmol/L Carbon Dioxide 24 (22-30) mmol/L BUN 17 (9-20) mg/dL Creatinine 0.90 (0.66-1.25) mg/dL Glucose 135 H (74-99) mg/dL Hemoglobin A1c 6.7 H (4.2-6.1) % Calcium 9.6 (8.4-10.2) mg/dL AST 37 (17-59) U/L ALT 31 (21-72) U/L Alkaline Phosphatase 93 (38-126) U/L Total Protein 7.0 (6.3-8.2) g/dL Albumin 4.3 (3.5-5.0) g/dL Calcium panel 01/21/17 Range/Units 05:50 Calcium 9.6 (8.4-10.2) mg/dL Albumin 4.3 (3.5-5.0) g/dL Pituitary panel 01/21/17 Range/Units 05:50 Sodium 140 (137-145) mmol/L Potassium 4.2 (3.5-5.1) mmol/L Chloride 102 (98-107) mmol/L Carbon Dioxide 24 (22-30) mmol/L BUN 17 (9-20) mg/dL Creatinine 0.90 (0.66-1.25) mg/dL Glucose 135 H (74-99) mg/dL Calcium 9.6 (8.4-10.2) mg/dL Adrenal panel 01/21/17 Range/Units 05:50 Sodium 140 (137-145) mmol/L Potassium 4.2 (3.5-5.1) mmol/L Chloride 102 (98-107) mmol/L Carbon Dioxide 24 (22-30) mmol/L BUN 17 (9-20) mg/dL Creatinine 0.90 (0.66-1.25) mg/dL Glucose 135 H (74-99) mg/dL Calcium 9.6 (8.4-10.2) mg/dL Total Bilirubin 0.8 (0.2-1.3) mg/dL AST 37 (17-59) U/L ALT 31 (21-72) U/L Alkaline Phosphatase 93 (38-126) U/L Total Protein 7.0 (6.3-8.2) g/dL Albumin 4.3 (3.5-5.0) g/dL
[2017-01-22] MEDS: PIPERACILLIN-TAZOBACTAM 3.375 GM in DEXTROSE/WATER 1 50ML.BAG IVPB SCH ×4 (00:30→23:18)
[2017-01-22 06:34] LABS: Glucose,Whole Blood 163 mg/dL (75-99)
[2017-01-22] MEDS: BUDESONIDE 0.5 MG/2 ML NEBU INHALATION SCH (07:42)
[2017-01-22] MEDS: IPRATROPIUM-ALBUTEROL 3 ML NEB INHALATION SCH ×4 (07:42→19:18)
[2017-01-22] MEDS: NEBIVOLOL 5 MG TAB PO SCH (08:32)
[2017-01-22] MEDS: ATORVASTATIN 40 MG TAB PO SCH (08:32)
[2017-01-22] MEDS: predniSONE 20 MG TAB PO SCH (08:32)
[2017-01-22] MEDS: FAMOTIDINE 20 MG TAB PO SCH (08:32)
[2017-01-22] MEDS: NICOTINE 14MG/24HR PATCH TRANSDERM SCH (08:32)
[2017-01-22] MEDS: POLYMYXIN B-TRIMETHOPRIM (10,000-1) OPHTH DROPS 10 ML BTL LEFT EYE SCH ×3 (08:32→17:17)
[2017-01-22] MEDS: amLODIPine 10 MG TAB PO SCH (08:33)
[2017-01-22] MEDS: hydrALAZINE HCL 25 MG TAB PO SCH ×4 (08:33→23:18)
[2017-01-22] MEDS: FUROSEMIDE 10 MG/ML 4 ML VIAL IV SCH ×2 (08:33→23:17)
[2017-01-22] MEDS: ASPIRIN 325 MG TAB PO SCH (08:33)
[2017-01-22] MEDS: LISINOPRIL 20 MG TAB PO SCH (08:34)
[2017-01-22] MEDS: INSULIN GLARGINE 100 UNIT/ML 10 ML VIAL SQ SCH (08:49)
[2017-01-22] MEDS: RIVAROXABAN 10 MG TAB PO SCH (10:25)
[2017-01-22 11:50] LABS: Glucose,Whole Blood 176 mg/dL (75-99)
--- NOTE | 2017-01-22 14:18 | P.PN ---
Subjective Principal diagnosis: CVA Patient seen and examined. Patient states that he gets short of breath with exertion. He states he felt better when he was on his home inhaler however he cannot remember which inhaler was. He states he doesn't like the and nebulizer breathing treatments. He is planning for discharge to rehab on Tuesday. Objective - Vital Signs Vital signs: Vital Signs Temp 97.1 F L 01/22/17 04:00 Pulse 72 01/22/17 07:45 Resp 18 01/22/17 04:00 BP 152/84 01/22/17 04:00 Pulse Ox 91 L 01/22/17 04:00 Intake & Output 01/21/17 01/22/17 01/22/17 18:59 06:59 18:59 Intake Total 480 280 Output Total 800 1600 400 Balance -320 -1600 -120 Weight 122 kg Intake: Oral 480 280 Output: Urine 800 1600 400 Other: Voiding Method Bedside Commode # Voids 0 # Bowel Movements 0 - Exam Gen.: Patient is alert and oriented 3, no acute distress Cardiovascular: Regular rate and rhythm, S1/S2 Lungs: Clear to auscultation bilaterally Abdomen: Soft nontender nondistended positive bowel sounds Extremities: No edema Neuro: Left facial droop with left upper extremity and lower extremity weakness - Labs CBC & Chem 7: 01/19/17 23:00 01/21/17 05:50 Labs: Abnormal Lab Results - Last 24 Hours (Table) 01/21/17 01/21/17 01/21/17 Range/Units 05:50 16:45 21:38 POC Glucose (mg/dL) 214 H 241 H (75-99) mg/dL Hemoglobin A1c 6.7 H (4.2-6.1) % 01/22/17 01/22/17 Range/Units 06:01 11:45 POC Glucose (mg/dL) 163 H 176 H (75-99) mg/dL Hemoglobin A1c (4.2-6.1) % Assessment and Plan Plan: Pulmonary vascular congestion on CXR Suspect underlying COPD Posterior circulation CVA Hx CHF, systolic, EF 40-45% Hx CVA/TIA Paroxysmal Afib Diabetes mellitus type 2 Hypertension Dyslipidemia Obesity Active tobacco abuse Check AIC, TSH, BNP Lasix 40mg BID for now Will repeat chest x-ray in the next 24-48 hours Monitor for fevers/WBC Levaquin, Zosyn O2 to maintain saturation greater than or equal to 88% Duo nebs DC Pulmicort and initiate Symbicort Nicotine transdermal Neurology and cardiology recommendations Blood pressure control Incentive spirometry and pulmonary hygiene Smoking cessation is highly recommended Prednisone taper Outpatient PFT and pulmonary follow-up PT and OT
--- NOTE | 2017-01-22 14:33 | P.PN ---
Subjective Principal diagnosis: Acute CVA This is a 61-year-old gentleman with history of prior TIA, multiple listed or infarcts, who read presented to the hospital again on this occasion with an acute CVA. Patient has been on xarelto and states that he has been taking his Xarelto regularly. does have known history of paroxysmal atrial fibrillation. Also has history of hyperlipidemia, nicotine dependence, diabetes , underlying COPD. He is also currently receiving antibiotics for possible pneumonia. Objective - Vital Signs Vital signs: Vital Signs Temp 97.1 F L 01/22/17 04:00 Pulse 72 01/22/17 07:45 Resp 18 01/22/17 04:00 BP 152/84 01/22/17 04:00 Pulse Ox 91 L 01/22/17 04:00 Intake & Output 01/21/17 01/22/17 01/22/17 18:59 06:59 18:59 Intake Total 480 280 Output Total 800 1600 400 Balance -320 -1600 -120 Weight 122 kg Intake: Oral 480 280 Output: Urine 800 1600 400 Other: Voiding Method Bedside Commode # Voids 0 # Bowel Movements 0 - Exam PHYSICAL EXAMINATION: HEENT: Head is atraumatic, normocephalic. Pupils equal, round. Neck is supple. There is no elevated jugular venous pressure. HEART EXAMINATION: Heart S1, S2 normal. No murmur or gallop heard. CHEST EXAMINATION: Lungs reveal coarse crackles to bilateral bases. ABDOMEN: Soft, nontender. Bowel sounds are heard. No organomegaly noted. EXTREMITIES: 2+ peripheral pulses with no evidence of peripheral edema and no calf tenderness noted. NEUROLOGIC patient is awake, alert and oriented -3. . - Labs CBC & Chem 7: 01/19/17 23:00 01/21/17 05:50 Labs: Abnormal Lab Results - Last 24 Hours (Table) 01/21/17 01/21/17 01/21/17 Range/Units 05:50 16:45 21:38 POC Glucose (mg/dL) 214 H 241 H (75-99) mg/dL Hemoglobin A1c 6.7 H (4.2-6.1) % 01/22/17 01/22/17 Range/Units 06:01 11:45 POC Glucose (mg/dL) 163 H 176 H (75-99) mg/dL Hemoglobin A1c (4.2-6.1) % Assessment and Plan (1) HTN (hypertension) Status: Acute (2) Diabetes Status: Acute (3) Hyperlipemia Status: Acute (4) Nicotine dependence Status: Acute (5) Acute right arterial ischemic stroke, MCA (middle cerebral artery) Status: Acute (6) Hyperlipidemia Status: Acute (7) Paroxysmal atrial fibrillation Status: Acute Plan: From cardiology's perspective, we will continue Xarelto. Blood pressure remaining stable. We'll follow this patient with you now on an as-needed basis only please don't hesitate to call us with any questions DNP note has been reviewed, I agree with a documented findings and plan of care. Patient was seen and examined.
[2017-01-22 16:40] LABS: Glucose,Whole Blood 291 mg/dL (75-99)
--- NOTE | 2017-01-22 18:24 | P.PN ---
Subjective This patient is a 61-year-old right-handed white male who was seen in neurology consultation yesterday for acute left arm weakness. Patient developed sudden left arm and leg weakness and was brought into the emergency room at [facility] for further evaluation. He was seen in the emergency room and was evaluated by the ER physician Dr. Lebron. Code stroke was initiated in the interventional neurologist reviewed his findings. He was not a candidate for TPA as he was on Xarelto. He was admitted to Hospital. He continued to show significant weakness of the left upper extremity on examination yesterday. He was sent for MRI of the brain today which was reviewed. MRI reveals evidence of an acute/subacute infarct involving the right superior chrissy. This would explain his current findings of severe left arm weakness. His CTA angiogram did reveal evidence of severe posterior circulation vascular occlusive disease. Patient is to continue on Xarelto at this time for long-term anticoagulation. Patient had undergone LD procedure last year in July 2016 which was entirely normal. Cardiology has seen the patient today and feel there is no cardiac source for his stroke. Given the results of his CTA angiogram this is most likely vasculopathy secondary to severe posterior artery disease. We will continue close neurological follow-up for this patient. He needs to be maintained on long-term anticoagulation. The patient was seen by vascular surgery yesterday evening. No vascular surgery intervention is planned. As noted patient does have severe posterior circulation arterial sclerotic changes. His MRI did confirm evidence of a right pontine stroke. We have recommended inpatient rehab placement for this patient and he has been evaluated by Dr. Robertson. He will be reevaluated for possible inpatient rehab on Tuesday. His overall prognosis at this time remains very guarded. Patient will be reevaluated for possible placement into the subacute rehab unit at [facility] early next week. His overall prognosis at this time remains very guarded. Objective - Vital Signs Vital signs: Vital Signs Temp 97.1 F L 01/22/17 04:00 Pulse 72 01/22/17 07:45 Resp 18 01/22/17 04:00 BP 152/84 01/22/17 04:00 Pulse Ox 91 L 01/22/17 04:00 Intake & Output 01/21/17 01/22/17 01/22/17 18:59 06:59 18:59 Intake Total 480 180 Output Total 800 1600 Balance -320 -1600 180 Weight 122 kg Intake: Oral 480 180 Output: Urine 800 1600 Other: Voiding Method Bedside Commode # Voids 0 # Bowel Movements 0 - Exam Physical examination: PHYSICAL EXAMINATION: Patient is resting comfortably in bed. VITAL SIGNS: Blood pressure is [124/65]. Heart rate is [68]. Respiration is [16] . Temperature is [97.0]. HEENT: Head is atraumatic, neck is supple, there were no carotid bruits. CHEST: Lungs are clear to auscultation and percussion. CARDIAC: S1, S2 normal rate and rhythm. There is no murmur. ABDOMEN: Soft and nontender. Bowel sounds are present. EXTREMITIES: There is no pedal edema. Peripheral pulses are present. Neurological examination: Patient's neurological examination is unchanged from yesterday. He continues to demonstrate left-sided hemiparesis arm greater than leg. There is been no significant improvement with left arm strength. - Labs CBC & Chem 7: 01/19/17 23:00 01/21/17 05:50 Labs: Abnormal Lab Results - Last 24 Hours (Table) 01/21/17 01/21/17 01/21/17 Range/Units 05:50 11:47 16:45 POC Glucose (mg/dL) 131 H 214 H (75-99) mg/dL Hemoglobin A1c 6.7 H (4.2-6.1) % 01/21/17 01/22/17 Range/Units 21:38 06:01 POC Glucose (mg/dL) 241 H 163 H (75-99) mg/dL Hemoglobin A1c (4.2-6.1) % Assessment and Plan (1) Acute right arterial ischemic stroke, MCA (middle cerebral artery) Status: Acute Code(s): I63.511 - CEREB INFRC D/T UNSP OCCLS OR STENOS OF RIGHT MID CEREB ART (2) Hyperlipidemia Status: Acute Code(s): E78.5 - HYPERLIPIDEMIA, UNSPECIFIED (3) Encephalopathy Status: Acute Code(s): G93.40 - ENCEPHALOPATHY, UNSPECIFIED (4) Paroxysmal atrial fibrillation Status: Acute Code(s): I48.0 - PAROXYSMAL ATRIAL FIBRILLATION Plan: This patient is a 61-year-old male who was admitted to Hospital initially with acute left arm weakness. He was seen in the emergency room by Dr. Lebron, who performed initial stroke evaluation. The interventional neurologist reviewed his case and deemed he was not a TPA candidate as he was taking Xarelto. He was admitted to hospital for further stroke evaluation. Patient was sent for MRI of the brain today which is reviewed. Results are as noted above. MRI reveals evidence of an acute/subacute stroke involving the right superior chrissy. This would explain his acute left arm and leg weakness. Patient is to be maintained on Xarelto. CTA angiogram reveals severe posterior circulation arterial disease. He is to be maintained on Xarelto [facility]. Patient has been evaluated by Dr. Robertson for inpatient rehab placement. We will await his further reevaluation on Tuesday. The patient was seen by vascular surgery yesterday evening. No surgical intervention is planned. He does have severe posterior circulation vasculopathy. We will continue to follow his progress closely during this admission. Await further recommendations from Dr. Robertson for rehab placement early next week. His neurological examination remains unchanged. He has dense hemiplegia involving the left arm. He is able to move his left leg. Would continue with PT/OT and speech therapy evaluation for the patient. Cardiology states the patient likely does have paroxysmal atrial fibrillation. As noted he is to continue with long-term anticoagulation with Xarelto for further management. This patient's overall prognosis at this time remains very guarded.
[2017-01-22] MEDS: SYMBICORT 160-4.5 MCG INHALER INHALATION SCH (19:18)
[2017-01-22 22:27] LABS: Glucose,Whole Blood 250 mg/dL (75-99)
[2017-01-22] MEDS: LEVOFLOXACIN 750 MG TAB PO SCH (23:18)
[2017-01-23 06:35] LABS: Glucose,Whole Blood 127 mg/dL (75-99)
[2017-01-23] MEDS: FAMOTIDINE 20 MG TAB PO SCH ×2 (06:36→08:12)
[2017-01-23] MEDS: POLYMYXIN B-TRIMETHOPRIM (10,000-1) OPHTH DROPS 10 ML BTL LEFT EYE SCH ×3 (06:36→08:14)
[2017-01-23 07:06] LABS: Anion Gap 15 mmol/L; Blood Urea Nitrogen 34 mg/dL (9-20); Calcium 9.7 mg/dL (8.4-10.2); Carbon Dioxide 23 mmol/L (22-30); Chloride 105 mmol/L (98-107); Glucose 128 mg/dL (74-99); Non-African American GFR(MDRD) >60 (>60 ml/min/1.73 sqM); Potassium 3.7 mmol/L (3.5-5.1); Sodium 143 mmol/L (137-145)
[2017-01-23] MEDS: IPRATROPIUM-ALBUTEROL 3 ML NEB INHALATION SCH (07:34)
[2017-01-23] MEDS: SYMBICORT 160-4.5 MCG INHALER INHALATION SCH (07:34)
[2017-01-23] MEDS: amLODIPine 10 MG TAB PO SCH (08:11)
[2017-01-23] MEDS: FUROSEMIDE 10 MG/ML 4 ML VIAL IV SCH (08:12)
[2017-01-23] MEDS: ATORVASTATIN 40 MG TAB PO SCH (08:12)
[2017-01-23] MEDS: ASPIRIN 325 MG TAB PO SCH (08:12)
[2017-01-23] MEDS: hydrALAZINE HCL 25 MG TAB PO SCH (08:13)
[2017-01-23] MEDS: predniSONE 20 MG TAB PO SCH (08:14)
[2017-01-23] MEDS: RIVAROXABAN 10 MG TAB PO SCH (08:14)
[2017-01-23] MEDS: INSULIN GLARGINE 100 UNIT/ML 10 ML VIAL SQ SCH (08:14)
[2017-01-23] MEDS: LISINOPRIL 20 MG TAB PO SCH (08:14)
[2017-01-23] MEDS: NEBIVOLOL 5 MG TAB PO SCH (08:14)
[2017-01-23] MEDS: PIPERACILLIN-TAZOBACTAM 3.375 GM in DEXTROSE/WATER 1 50ML.BAG IVPB SCH (08:43)
[2017-01-23] MEDS: NICOTINE 14MG/24HR PATCH TRANSDERM SCH (08:43)
[2017-01-23 11:37] LABS: Glucose,Whole Blood 142 mg/dL (75-99)
[2017-01-23] MEDS ORDERED: LORazepam 2 MG/ML SYRINGE IV STA (11:38)
--- NOTE | 2017-01-23 12:11 | DS ---
DATE OF ADMISSION: 01/20/2017 DATE OF DISCHARGE: DISCHARGE MEDICATIONS: Transfer medications on: 1. DuoNeb updraft q.i.d. 2. Loratadine 10 daily. 3. Aspirin 325 daily. 4. Lipitor 40 daily. 5. Symbicort 2 puffs b.i.d. 6. Pepcid 20 b.i.d. 7. Lasix 40 IV q.12. 8. Hydralazine 25 p.o. q.i.d. 9. Lantus 22 units q.a.m. 10. Levaquin 750 daily. 11. Zestril 20 daily. 12. Bystolic 20 mg daily. 13. Trans-derm nicotine patch daily 14 mg. 14. Zosyn IV q.8 hours. 15. Two drops q.6 hours of polymyxin/trimethoprim sulfate Polytrim eye drops for eye infection. 16. Prednisone 40 mg daily. 17. Xarelto 20 mg daily. 18. Ambien 5 q.h.s. CONDITION: Stable. PROGNOSIS: Extremely guarded. HOSPITAL COURSE OF EVENTS: This is a white male. Patient underwent MRI of the brain that showed subacute stroke of the right superior chrissy. He was getting better for the last 1 to 2 days and then he started progressively getting worse last night. His ETA showed posterior circulation, vascular occlusive disease, LD last fall for paroxysmal atrial fibrillation showed entirely normal findings. Because of deterioration in his stroke status overnight with worsening slurred speech and unable to move his left leg that he had been moving yesterday and worsening slurred speech and progressiveness of the stroke, Dr. Angela, neurologist recommended he be transferred down to [facility]'s stroke team. He is also diabetic, hypertensive, nicotine addiction. Patient is on nicotine patch at this time.
[2017-01-23 12:15] VITALS: BP 138/74; PULSE 65; RESP 20; TEMP 97.5
--- NOTE | 2017-01-23 14:10 | PN ---
Mr. Wall is seen, evaluated and examined while covering for Dr. Cade. This is a 61-year-old male who is admitted to the hospital with problems associated with acute CVA involving the posterior circulation. Patient has issues associated with COPD along with cardiomyopathy with acute on chronic systolic heart failure and paroxysmal atrial fibrillation. The patient remains on diuretics though. Clinically the patient is doing well remains on broad-spectrum antibiotics. The patient has been short of breath, but severity has improved, though. Hemodynamic status is stable. Last set of vitals include blood pressure is 130/60, respiratory rate 16, pulse 57, temperature 98, saturation 92%. HEENT: Unremarkable. NECK: Supple. LUNGS: Good air entry bilaterally. A few crackles at bases. HEART: Regular rate and rhythm. S1 and S2 audible. ABDOMEN: Soft. No rebound or history. EXTREMITIES: +1 peripheral pulses. NEUROLOGICAL EXAMINATION: Otherwise awake and alert. IMPRESSION: 1. Acute right-sided cerebrovascular accident involving the middle cerebral artery. 2. Acute exacerbation of chronic obstructive pulmonary disease. 3. Paroxysmal atrial fibrillation. 4. Severe chronic obstructive pulmonary disease. PLAN AND RECOMMENDATION: Continue supportive care. Follow clinical course closely. Continue gentle diuresis, breathing treatments, supportive care.
--- NOTE | 2017-01-23 14:31 | PN ---
This is a 61-year-old white male admitted with a stroke. Cardiology and pulmonary and neurology has seen the patient, a little bit worse today with speech, but he is still able to move his left leg and his left arm is unable to move. MRI showed evidence of subacute infarct of the right superior chrissy. This would explain the severe left arm weakness per neurology. CT angiogram showed severe posterior circulation. Vascular occlusive disease. He is on Xarelto for long-term anticoagulation. He underwent LD procedure last year in July 2016 entirely normal. There is no cardiac source of stroke. Neurology ( ) most likely vasculopathy secondary to severe posterior artery disease. Remains on Xarelto. Will monitor him overnight. If he deteriorates, we will possibly send him down to the [facility] stroke clinic, stroke inpatient unit. Temperature 97.1, pulse is 70s, respirations 16 to 18, blood pressure 150s/80's. O2 91%. CARDIOVASCULAR: S1, S2. LUNGS: Clear. MUSCULOSKELETAL: Left arm immobile, left leg unable to bend to 45 degrees. He has mild slurred speech but mostly can understand what he says. ASSESSMENT: 1. Acute right arterial ischemic stroke MCA of the chrissy. 2. Dyslipidemia. 3. Encephalopathy. 4. Paroxysmal atrial fibrillation. The patient he was not a TPA candidate. He was taken Xarelto. He was admitted to the hospital. MRI showed right superior chrissy stroke. CT angiogram showed severe posterior circulation arterial disease. ( ) patient inpatient rehab and will see how he does.
== END 2017-01-23 12:45 | disposition short-term general hospital (02) | DRG 64 ==
LOC: EC 22:21 → 6SEL 01-20 00:06
PROVIDERS: ADMIT Family Medicine; ATTEND Family Medicine
DX: I63.511 Cerebral infarction due to unspecified occlusion or stenosis of right middle cerebral artery (principal); G93.40 Encephalopathy, unspecified; I50.23 Acute on chronic systolic (congestive) heart failure; G81.94 Hemiplegia, unspecified affecting left nondominant side; J44.1 Chronic obstructive pulmonary disease with (acute) exacerbation; I65.01 Occlusion and stenosis of right vertebral artery; E66.01 Morbid (severe) obesity due to excess calories; I65.21 Occlusion and stenosis of right carotid artery; E04.1 Nontoxic single thyroid nodule; E11.9 Type 2 diabetes mellitus without complications; E78.00 Pure hypercholesterolemia, unspecified; E78.5 Hyperlipidemia, unspecified; F17.200 Nicotine dependence, unspecified, uncomplicated; I11.0 Hypertensive heart disease with heart failure; I25.2 Old myocardial infarction; I48.0 Paroxysmal atrial fibrillation; R29.810 Facial weakness; F32.9 Major depressive disorder, single episode, unspecified; R41.3 Other amnesia; I25.10 Atherosclerotic heart disease of native coronary artery without angina pectoris; Z68.35 Body mass index [BMI] 35.0-35.9, adult; Z79.01 Long term (current) use of anticoagulants; Z79.4 Long term (current) use of insulin; Z79.899 Other long term (current) drug therapy; Z86.73 Personal history of transient ischemic attack (TIA), and cerebral infarction without residual deficits; Z91.041 Radiographic dye allergy status; Z88.5 Allergy status to narcotic agent; Z95.5 Presence of coronary angioplasty implant and graft
CPT/HCPCS: 36415; 70450; 70496; 70498; 70551; 71010; 80048; 80053; 80061; 82550; 82553; 83036; 83880; 84443; 84484; 85025; 85610; 85730; 93005; 93880; 94640; 95819; 96361; 96365; 99291